=== PATIENT | male | born 1955 | race Caucasian/White ===

== ENCOUNTER 2017-09-02 07:12 | Day surgery (SDC) | payer BC ==
[~2017-09-02 07:12] MED LIST: D5 LR 1000 ML 1,000 ML IV ONE
[2017-09-02] MEDS ORDERED: NS 1000 ML 1,000 ML ONE (08:00)
[2017-09-02] MEDS ORDERED: DIPRIVAN VIAL 20 ML ONE (09:03)
[2017-09-02 09:50] VITALS: BP 118/66
== END 2017-09-02 09:45 | disposition home or self-care (01) ==
LOC: SURG1 07:12
PROVIDERS: ATTEND Internal Medicine Gastroenterology
PROC: 0DBN8ZX Excision of Sigmoid Colon, Via Natural or Artificial Opening Endoscopic, Diagnostic (ICD-10-PCS; principal; 2017-09-02 07:30)
PROC: 0DBP8ZX Excision of Rectum, Via Natural or Artificial Opening Endoscopic, Diagnostic (ICD-10-PCS; principal; 2017-09-02 07:30)
PROC: 0DJD8ZZ Inspection of Lower Intestinal Tract, Via Natural or Artificial Opening Endoscopic (ICD-10-PCS; principal; 2017-09-02 07:30)
DX: Z12.11 Encounter for screening for malignant neoplasm of colon (principal); K63.5 Polyp of colon; K57.30 Diverticulosis of large intestine without perforation or abscess without bleeding; K64.0 First degree hemorrhoids
CPT/HCPCS: A4217; J3490; J7120